=== PATIENT | female | born 2000 | race Caucasian/White ===

== ENCOUNTER 2023-01-31 12:10 | Emergency (ER) | payer OTHER | END 2023-01-31 12:56 | disposition home or self-care (01) | LOC: CSHERS 12:10 | DX: O99.891 Other specified diseases and conditions complicating pregnancy (principal); G56.01 Carpal tunnel syndrome, right upper limb; Z3A.00 Weeks of gestation of pregnancy not specified ==

== ENCOUNTER 2023-04-16 03:20 | Inpatient (IN) | payer OTHER ==
[2023-04-16] MEDS ORDERED: Terbutaline Sulfate 1 MG/ML VIAL ONE (03:49)
[2023-04-16] MEDS ORDERED: CEFAZOLIN 2 GM VIAL ONE (03:52)
[2023-04-16 04:23] VITALS: BMI 32.2
[2023-04-16 04:26] LABS: Hematocrit 35.5 % (34.9-44.5); Hemoglobin 11.5 g/dL (12.0-15.5); Mean Corpuscular HGB CONC 32.4 g/dL (32.0-36.0); Mean Corpuscular Hemoglobin 27.4 pg (27.0-33.0); Mean Corpuscular Volume 84.7 fl (81.6-98.3); Mean Platelet Volume 11.1 fl (7.4-10.4); Platelet Count 231 10x3/uL (150-450); RBC Distribution Width 14.2 % (11.5-14.5); Red Blood Cell (RBC) Count 4.19 10x6/uL (3.90-5.03); White Blood Cell (WBC) Count 11.6 10x3/uL (3.5-10.5)
[2023-04-16] MEDS ORDERED: PHENYLEPHRINE-NS 100 MCG/ML 10 ML SYRINGE ONE (04:27)
[2023-04-16] MEDS ORDERED: PROPOFOL 20 ML ONE (04:27)
[2023-04-16] MEDS ORDERED: Succinylcholine 200 MG/10 ml SYRINGE FS ONE (04:27)
[2023-04-16] MEDS ORDERED: Midazolam HCl 2 mg/2 ml Vial ONE (04:37)
[2023-04-16] MEDS ORDERED: fentaNYL 50 mcg/mL 1 mL Vial ONE ×3 (04:39→04:59)
[2023-04-16] MEDS ORDERED: Rocuronium Bromide 10 MG/ML (10ML VIAL) ONE (04:42)
[2023-04-16] MEDS ORDERED: Oxytocin 10 UNITS/ML VIAL ONE (04:50)
[2023-04-16] MEDS ORDERED: Azithromycin 500 MG VIAL ONE (04:52)
[2023-04-16] MEDS ORDERED: Ondansetron PF 4 MG/2 ML Vial ONE (04:56)
[2023-04-16] MEDS ORDERED: Dexamethasone 4 mg/ml Vial ONE (04:56)
[2023-04-16 04:59] LABS: Syphilis Antibody Nonreactive (Nonreactive); Syphilis Antibody Index 0.04 S/CO (<1.00 Non-Reactive)
[2023-04-16 05:00] LABS: Hep B Surf Ag - L&D Non-Reactive S/CO (NonReactive)
[2023-04-16] MEDS ORDERED: Dexmedetomidine 200 MCG/2 ML VIAL ONE (05:02)
[2023-04-16] MEDS ORDERED: Ketorolac Tromethamine 30 MG/ML VIAL ONE (05:06)
[2023-04-16] MEDS ORDERED: SUGAMMADEX SODIUM 200 MG/2 ML VIAL ONE (05:06)
[2023-04-16] MEDS ORDERED: Naloxone HCl 0.4 mg/ml Vial IV PRN (05:12)
[2023-04-16] MEDS ORDERED: FENTANYL 500 MCG/10 ML VIAL 2,000 MCG in Sodium Chloride 0.9% 60 ML IV PRN (05:12)
[2023-04-16] MEDS ORDERED: diphenhydrAMINE 50 MG/ML VIAL IVP PRN (05:12)
[2023-04-16] MEDS ORDERED: Ondansetron PF 4 MG/2 ML Vial IVP PRN ×2 (05:12→09:48)
[2023-04-16] MEDS ORDERED: diphenhydrAMINE 25 MG CAP PO PRN ×2 (05:12→09:48)
[2023-04-16] MEDS ORDERED: Promethazine HCl 25 MG/ML VIAL IM PRN ×2 (05:12→09:48)
[2023-04-16] MEDS ORDERED: diphenhydrAMINE 50 MG/ML VIAL IM PRN (05:12)
[2023-04-16] MEDS ORDERED: Communication Order-Pharmacy FS SCH (05:15)
[2023-04-16] MEDS ORDERED: Ketorolac Tromethamine 30 MG/ML VIAL IVP PRN (05:15)
[2023-04-16] MEDS ORDERED: FENTANYL 500 MCG/10 ML VIAL 1,000 MCG in Sodium Chloride 0.9% 30 ML IV PRN (05:30)
[2023-04-16] MEDS ORDERED: HYDROcodone/Acetaminophen 5/325 mg Tablet PO PRN (09:48)
[2023-04-16] MEDS ORDERED: Bisacodyl 10 MG SUPP PR PRN (09:48)
[2023-04-16] MEDS ORDERED: hydrALAZINE 20 MG/ML VIAL SLOW IVP PRN (09:48)
[2023-04-16] MEDS ORDERED: Lanolin Ointment 7 GM TUBE TOP PRN (09:48)
[2023-04-16] MEDS ORDERED: Meperidine HCl/PF 25 MG/ML VIAL IM PRN (09:48)
[2023-04-16] MEDS ORDERED: Docusate 100 MG CAP PO SCH (11:00)
[2023-04-16] MEDS ORDERED: Prenatal Vitamin 1 TAB PO SCH (11:00)
[2023-04-16 11:01] LABS: RapidComm Collect By OR NURSE
[2023-04-16] MEDS: Ketorolac Tromethamine 30 MG/ML VIAL IVP SCH ×2 (11:29→17:58)
[2023-04-16] MEDS ORDERED: Acetaminophen 500 MG TAB PO SCH (13:45)
[2023-04-16] MEDS: Simethicone Chewable 80 MG TAB PO PRN ×3 (13:56→22:17)
[2023-04-16] MEDS: HYDROcodone/Acetaminophen 5/325 mg Tablet PO PRN ×2 (17:59→22:17)
[2023-04-16] MEDS ORDERED: Boostrix 0.5 ML (Tdap) VIAL (>/=7 yrs of age) IM ONE (18:00)
[2023-04-16] MEDS: Docusate 100 MG CAP PO SCH (21:09)
[2023-04-17] MEDS: Ketorolac Tromethamine 30 MG/ML VIAL IVP SCH (00:03)
[2023-04-17 03:48] LABS: Hemoglobin 8.4 g/dL (12.0-15.5); Mean Corpuscular HGB CONC 32.3 g/dL (32.0-36.0); Mean Corpuscular Hemoglobin 27.8 pg (27.0-33.0); Mean Corpuscular Volume 86.1 fl (81.6-98.3); Mean Platelet Volume 10.5 fl (7.4-10.4); Platelet Count 177 10x3/uL (150-450); RBC Distribution Width 14.4 % (11.5-14.5); Red Blood Cell (RBC) Count 3.02 10x6/uL (3.90-5.03); White Blood Cell (WBC) Count 9.4 10x3/uL (3.5-10.5)
[2023-04-17] MEDS: Simethicone Chewable 80 MG TAB PO PRN ×2 (04:22→08:33)
[2023-04-17] MEDS: HYDROcodone/Acetaminophen 5/325 mg Tablet PO PRN ×5 (04:22→21:50)
[2023-04-17] MEDS: Ferrous Sulfate 325 MG TAB PO SCH ×3 (06:02→21:49)
[2023-04-17] MEDS: Ibuprofen 800 MG TAB PO SCH ×3 (06:10→21:50)
[2023-04-17] MEDS: Prenatal Vitamin 1 TAB PO SCH (08:24)
[2023-04-17] MEDS: Docusate 100 MG CAP PO SCH ×2 (08:24→21:49)
[2023-04-18] MEDS: Ibuprofen 800 MG TAB PO SCH ×3 (06:17→21:36)
[2023-04-18] MEDS: HYDROcodone/Acetaminophen 5/325 mg Tablet PO PRN ×2 (06:21→12:00)
[2023-04-18] MEDS: Docusate 100 MG CAP PO SCH ×2 (08:35→21:36)
[2023-04-18] MEDS: Prenatal Vitamin 1 TAB PO SCH (08:35)
[2023-04-18] MEDS: Ferrous Sulfate 325 MG TAB PO SCH ×2 (08:35→21:36)
[2023-04-19] MEDS: HYDROcodone/Acetaminophen 5/325 mg Tablet PO PRN ×3 (05:10→18:43)
[2023-04-19] MEDS: Ibuprofen 800 MG TAB PO SCH ×2 (05:40→13:47)
[2023-04-19 08:10] VITALS: BP 121/72; TEMP 98.1
[2023-04-19] MEDS: Prenatal Vitamin 1 TAB PO SCH (08:23)
[2023-04-19] MEDS: Docusate 100 MG CAP PO SCH (08:23)
[2023-04-19] MEDS: Ferrous Sulfate 325 MG TAB PO SCH (08:23)
== END 2023-04-19 19:10 | disposition home or self-care (01) | DRG 788 ==
LOC: CSHLD/OP 03:20 → CSHLD 04:14 → CSHPP 09:05
PROVIDERS: ADMIT Family Medicine; ATTEND Family Medicine
PROC: 10D00Z1 Extraction of Products of Conception, Low, Open Approach (ICD-10-PCS; principal; 2023-04-16)
PROC: 3E0P7VZ Introduction of Hormone into Female Reproductive, Via Natural or Artificial Opening (ICD-10-PCS; 2023-04-16)
PROC: 4A033R1 Measurement of Arterial Saturation, Peripheral, Percutaneous Approach (ICD-10-PCS; 2023-04-16)
DX: O76 Abnormality in fetal heart rate and rhythm complicating labor and delivery (principal); Z3A.39 39 weeks gestation of pregnancy; Z37.0 Single live birth
CPT/HCPCS: 36415; 51702; 82805; 85027; 86780; 86850; 86900; 86901; 87340; 88307; 99285; J1100; J1885; J2250; J2405; J2590; J2704; J3010; J3105; J3490

== ENCOUNTER 2023-07-21 12:26 | Emergency (ER) | payer OTHER ==
[2023-07-21 13:36] LABS: SARS-CoV-2 NAA Rapid Test Not Detected (NotDetected)
[2023-07-21] MEDS ORDERED: Ondansetron ODT 4 MG TAB ONE (13:52)
[2023-07-21] MEDS ORDERED: Acetaminophen 500 MG TAB ONE (13:52)
== END 2023-07-21 14:04 | disposition home or self-care (01) ==
LOC: CSHERS 12:26
DX: J10.1 Influenza due to other identified influenza virus with other respiratory manifestations (principal)
CPT/HCPCS: 99284; Q0162

== ENCOUNTER 2023-10-26 17:53 | Emergency (ER) | payer OTHER | END 2023-10-26 18:32 | disposition home or self-care (01) | LOC: CSHERS 17:53 | DX: L25.9 Unspecified contact dermatitis, unspecified cause (principal) | CPT/HCPCS: 99282 ==

== ENCOUNTER 2024-05-11 12:56 | Emergency (ER) | payer OTHER, SELFPAY | END 2024-05-11 13:30 | disposition home or self-care (01) | LOC: CSHERS 12:56 | DX: J06.9 Acute upper respiratory infection, unspecified (principal) | CPT/HCPCS: 99283 ==

== ENCOUNTER 2025-01-09 12:45 | Emergency (ER) | payer OTHER, SELFPAY ==
[2025-01-09] MEDS ORDERED: Dicyclomine 20 MG TAB ONE (14:47)
[2025-01-09 15:10] LABS: #Basophils 0.04 10x3/uL (0.0-0.2); #Eosinophils 0.07 10x3/uL (0.0-0.5); #Monocytes 0.50 10x3/uL (0.0-1.1); #Neutrophils 5.15 10x3/uL (1.5-8.4); %Basophils 0.5 % (0.0-2.0); %Eosinophils 0.9 % (0.0-6.0); %Lymphocytes 24.0 % (18.0-47.0); %Monocytes 6.6 % (0.0-10.0); %Neutrophils 67.7 % (40.0-75.0); Hematocrit 36.8 % (34.9-44.5); Hemoglobin 12.4 g/dL (12.0-15.5); Mean Corpuscular Hemoglobin 30.2 pg (27.0-33.0); Mean Corpuscular Volume 89.8 fL (81.6-98.3); Platelet Count 231 10x3/uL (150-450); Red Blood Cell (RBC) Count 4.10 10x6/uL (3.90-5.03); White Blood Cell (WBC) Count 7.61 10x3/uL (3.5-10.5)
[2025-01-09 15:12] LABS: Glucose, Urine (Dipstick) Normal (Negative); Leukocyte 25 (Negative); Protein, Urine (Dipstick) 30 mg/dl (Neg-Trace); Specific Gravity, Urine 1.010 (1.005-1.030)
[2025-01-09 15:36] LABS: BHCG - Serum Negative (NEGATIVE); Pregs Control Background? CLEAR/WHITE (CLR/WHITE); Pregs Control Bar Appear? YES (CONTROL BAR)
[2025-01-09 15:53] LABS: ALT (SGPT) 9 U/L (Less than 34); AST (SGOT) 18 U/L (11-34); Albumin 4.6 g/dL (3.1-4.5); Alkaline Phosphatase 45 U/L (40-110); Anion Gap 12 mmol/L (10-20); BUN (Urea Nitrogen) 10 mg/dL (7.0-18.7); Bilirubin, Total 0.4 mg/dL (0.3-1.2); Calc. Creatinine Clearance 0 mL/min (70-130); Calcium 8.7 mg/dL (7.8-10.44); Carbon Dioxide 25 mmol/L (22-29); Chloride 106 mmol/L (98-107); Globulin 2.9 g/dL (2.4-3.5); Glucose 104 mg/dL (70-105); Lipase 9 U/L (8-78); Potassium 4.1 mmol/L (3.5-5.1); Sodium 139 mmol/L (136-145)
[2025-01-09 15:54] LABS: CAUTI Indications for Culture Pelvic or flank pain; RBC/HPF 0-3 HPF (0-3)
[2025-01-09 15:55] LABS: Bacteria/HPF 2+ HPF (None Seen); Mucous/LPF 4+ LPF (<2+)
[2025-01-09 15:56] LABS: Urine Culture Reflex No No
== END 2025-01-09 16:30 | disposition home or self-care (01) ==
LOC: CSHERS 12:45
DX: K52.9 Noninfective gastroenteritis and colitis, unspecified (principal); N39.0 Urinary tract infection, site not specified
CPT/HCPCS: 80053; 81001; 83690; 84703; 85025; 96360

== ENCOUNTER 2025-02-04 18:45 | Emergency (ER) | payer SELFPAY ==
[2025-02-04] MEDS ORDERED: Ketorolac Tromethamine 30 MG (1 mL) VIAL ONE (19:54)
[2025-02-04] MEDS ORDERED: Ondansetron PF 4 MG/2 ML Vial ONE (19:54)
[2025-02-04 20:34] LABS: Glucose, Urine (Dipstick) Normal (Negative); Leukocyte Negative (Negative); Protein, Urine (Dipstick) 15 mg/dl (Neg-Trace); Specific Gravity, Urine 1.015 (1.005-1.030)
[2025-02-04 20:36] LABS: #Basophils 0.03 10x3/uL (0.0-0.2); #Eosinophils Less than 0.03 10x3/uL (0.0-0.5); #Monocytes 0.41 10x3/uL (0.0-1.1); #Neutrophils 3.13 10x3/uL (1.5-8.4); %Basophils 0.8 % (0.0-2.0); %Eosinophils 0.5 % (0.0-6.0); %Lymphocytes 9.5 % (18.0-47.0); %Monocytes 10.3 % (0.0-10.0); %Neutrophils 78.4 % (40.0-75.0); Hematocrit 35.5 % (34.9-44.5); Hemoglobin 11.7 g/dL (12.0-15.5); Mean Corpuscular Hemoglobin 28.7 pg (27.0-33.0); Mean Corpuscular Volume 87.2 fL (81.6-98.3); Platelet Count 181 10x3/uL (150-450); Red Blood Cell (RBC) Count 4.07 10x6/uL (3.90-5.03); White Blood Cell (WBC) Count 3.99 10x3/uL (3.5-10.5)
[2025-02-04 20:42] LABS: BHCG - Serum Negative (NEGATIVE); Pregs Control Background? CLEAR/WHITE (CLR/WHITE); Pregs Control Bar Appear? YES (CONTROL BAR)
[2025-02-04 20:48] LABS: ALT (SGPT) 7 U/L (Less than 34); AST (SGOT) 13 U/L (11-34); Albumin 4.5 g/dL (3.1-4.5); Alkaline Phosphatase 38 U/L (40-110); Anion Gap 12 mmol/L (10-20); BUN (Urea Nitrogen) 10 mg/dL (7.0-18.7); Bilirubin, Total 0.2 mg/dL (0.3-1.2); Calc. Creatinine Clearance 0 mL/min (70-130); Calcium 8.6 mg/dL (7.8-10.44); Carbon Dioxide 21 mmol/L (22-29); Chloride 111 mmol/L (98-107); Globulin 2.7 g/dL (2.4-3.5); Glucose 108 mg/dL (70-105); Potassium 3.4 mmol/L (3.5-5.1); Sodium 141 mmol/L (136-145)
[2025-02-04 20:53] LABS: Bacteria/HPF 2+ HPF (None Seen); CAUTI Indications for Culture Pelvic or flank pain; Mucous/LPF 1+ LPF (<2+); RBC/HPF 0-3 HPF (0-3); Sperm/HPF Rare HPF (None Seen); WBC/HPF 0-3 HPF (0-3)
[2025-02-04 20:54] LABS: Urine Culture Reflex No No
== END 2025-02-04 21:08 | disposition home or self-care (01) ==
LOC: CSHERS 18:45
DX: U07.1 COVID-19 (principal)
CPT/HCPCS: 71045; 80053; 81001; 84703; 85025; 87426; 96374; 96375; J1885; J2405